=== PATIENT | female | born 1960 | race Caucasian/White ===

== ENCOUNTER 2020-03-07 14:01 | Outpatient (CLI) | payer MEDICARE, SELFPAY ==
--- NOTE | 2020-03-07 14:10 | XR_ITS ---
WS: [id number] SCREENING DEXA SCAN [employer] CLINICAL INFORMATION: POST MENOPAUSAL COMPARISON: None. FINDINGS: The L1-L4 bone mineral density measures 1.202 g/cm2. This corresponds to a T score score of 0.2 and Z score of 0.5. Left femoral neck bone mineral density measures 1.030 g/cm2. This corresponds to a T score of 0.2 and Z score of 0.4. Right femoral neck bone mineral density measures 0.993 g/cm2. This corresponds to a T score -0.1of an d Z score of 0.2. Mean femoral neck bone mineral density measures 1.012 g/cm2. This corresponds to a T score of 0.0 and Z score of 0.3. XR/XR DEXA axial skeleton* [id number] IMPRESSION: Normal bone mineralization. Patient's FRAX calculated 10 year probability for major osteoporotic fracture i s 10.0 % and osteoporotic hip fracture is 0.3%.
== END 2020-03-07 14:02 | disposition home or self-care (01) ==
LOC: RADWPI 14:08
PROVIDERS: Family Provider Internal Medicine; PCP Internal Medicine; Visit Provider Internal Medicine
DX: Z78.0 Asymptomatic menopausal state (principal)
CPT/HCPCS: 77080

== ENCOUNTER 2020-08-01 13:07 | Outpatient (CLI) | payer MEDICARE, SELFPAY ==
--- NOTE | 2020-08-01 13:17 | MM_ITS ---
WS: [id number] BILATERAL DIGITAL SCREENING MAMMOGRAPHY WITH CAD CLINICAL INFORMATION: SCREENING HISTORY: Screening mammogram. No current complaints. COMPARISON: TECHNIQUE: Bilateral CC and MLO views. FINDINGS: The breasts are composed of heterogeneous fibroglandular density tissue, which can limit the detectio n of small underlying mass lesions. 5 mm asymmetric density near the 12:00 or 6:00 position seen on t he cc view posterior depth. Recommend spot compression views and ultrasound if persistent. Right breast is unchanged. MM/[place] [id number] IMPRESSION: BI-RADS: 0-Incomplete: Need additional imaging evaluation FOLLOW UP: Need Additional Imaging
== END 2020-08-01 13:08 | disposition home or self-care (01) ==
LOC: RADSHAW 13:11
PROVIDERS: Family Provider Internal Medicine; PCP Internal Medicine; Visit Provider Nurse Practitioner Family
DX: Z12.31 Encounter for screening mammogram for malignant neoplasm of breast (principal); N64.89 Other specified disorders of breast
CPT/HCPCS: 77067

== ENCOUNTER 2020-08-28 11:47 | Outpatient (CLI) | payer MEDICARE, SELFPAY ==
--- NOTE | 2020-08-28 11:53 | MM_ITS ---
WS: [id number] LEFT DIGITAL MAMMOGRAPHY WITH CAD CLINICAL INFORMATION: ABNORMAL MAMMOGRAM COMPARISON: August 01, 2020 TECHNIQUE: 3 views of the left breast were obtained. FINDINGS: Scattered fibroglandular densities of the left breast. Previous described 5 mm asymmetric density pos terior depth left breast is no longer visualized today on the spot compression views. Findings are be nign. Recommend return to annual screening mammography. MM/[place] [id number] IMPRESSION: BI-RADS: 2-Benign FOLLOW UP: 1 Year Follow-up Recommend return to annual screening mammography.
== END 2020-08-28 11:48 | disposition home or self-care (01) ==
LOC: RADSHAW 11:51
PROVIDERS: Family Provider Internal Medicine; PCP Internal Medicine; Visit Provider Nurse Practitioner Family
DX: R92.8 Other abnormal and inconclusive findings on diagnostic imaging of breast (principal)
CPT/HCPCS: 77065

== ENCOUNTER 2021-05-03 19:48 | Emergency (ER) | payer MEDICARE, SELFPAY ==
--- NOTE | 2021-05-03 19:49 | ECG_ITS ---
[facility] Test Date: 2021-05-03 Pat Name: Kelsea Navarro Department: Room: Gender: Female Home Health Provider: : 1960 Requested By: Silvestre Herrera Order Number: [id number] Molly MD: Jennifer Cates M.D. Measurements Intervals [place] Rate: 105 P: 35 MI: 166 QRS: 6 QRSD: 97 T: 28 QT: 331 QTc: 438 Interpretive Statements SINUS TACHYCARDIA POSSIBLE ANTERIOR MYOCARDIAL INFARCTION , PROBABLY OLD [30 ms Q WAVE IN V3/V4, OR R < 0.2 mV IN V4] Compared to ECG 01/20/2015 09:53:37 Sinus rhythm no longer present Myocardial infarct finding still present Electronically Signed On 05-04-2021 18:34:20 CDT by Jennifer Cates M.D. [id number] f
--- NOTE | 2021-05-03 19:49 | XRR_ITS ---
PROCEDURE INFORMATION: Exam: XR Chest Exam date and time: 05/03/2021 7:49 PM Age: 60 years old Clinical indication: Sternal or substernal pain; Additional info: Cp TECHNIQUE: Imaging protocol: XR of the chest. Views: 1 view. Total images: 1 COMPARISON: [facility] [place] Chest 2 views 02/03/2017 12:10 PM FINDINGS: Lungs: No visible active interstitial or alveolar airspace disease. Pleural spaces: Unremarkable. No pleural effusion. No pneumothorax. Heart/Mediastinum: Unremarkable. No cardiomegaly. Bones/joints: Unremarkable. Other findings: Obesity. XR/XR chest 1V portable [id number] IMPRESSION: Nonacute.
[2021-05-03 19:58] VITALS: BP 137/99; PULSE 106; RESP 16; TEMP 36.9; O2SAT 97; BMI 42.7
--- NOTE | 2021-05-03 20:45 | ED_ITS ---
HPI - Chest Pain General: Chief Complaint: Chest Pain Stated Complaint: Chest Pains Time Seen by Provider: 05/03/21 20:25 History of Present Illness: HPI narrative: Patient is a 60-year-old female with a past medical history of hypertension and rosacea. She is here complaints of chest pain. States started about 4:00 this afternoon while she was sitting at rest it is wax and wane in intensity and and presents. Mostly moderate to mild. States it is just over the left breast and on easily localized area does not radiate down her arm to her shoulder across her chest or to her back or jaw she has not been diaphoretic or nauseous. Has not been short of breath. No history of coronary artery disease no history of diabetes no history of hypertension does not smoke. Denies fevers chills shortness of breath nausea vomiting diarrhea altered mental status or syncope MD complaint: chest pain Review of Systems General: Reports: 10 or more systems reviewed and unremarkable except in HPI and below PFSH ED PFSH: Social History Smoking and tobacco status: never smoked Alcohol intake: current Alcohol intake frequency: holidays/special occasions only Physical Exam Const: COMMON NORMALS: no acute distress, average body habitus and patient oriented x3 GENERAL APPEARANCE: cooperative and comfortable; not in distress, not anxious, not ill appearing, not frail appearing and not diaphoretic HENMT: COMMON NORMALS: normocephalic and atraumatic HEAD & SCALP: normocephalic and atraumatic Chest: COMMONS NORMALS: normal inspection of the chest and normal palpation of entire chest wall CHEST: No localized rib tenderness with anteroposterior compression Resp: COMMON NORMALS: normal respiratory effort, No retractions, No use of accessory muscles and clear to auscultation bilaterally EFFORT & INSPECTION: Yes able to speak in complete sentences and Yes symmetric chest movement AUSCULTATION: clear to auscultation bilaterally Cardio: COMMON NORMALS: regular rate, regular rhythm, S1 normal heart sound present and S2 normal heart sound present; negative for No murmurs present (Cardio) RATE: regular rate RHYTHM: regular rhythm HEART SOUNDS: S1 normal heart sound present and S2 normal heart sound present GI: COMMON NORMALS: Normal to inspection, nondistended, normoactive bowel sounds present, Soft to palpation and non-tender PALPATION: Yes Soft to palpation Extremity: COMMON NORMALS: normal to inspection and full ROM Neuro: COMMON NORMALS: patient oriented x3, moves all extremities and no focal motor deficits Psych: COMMON NORMALS: mental status grossly normal and Normal thought process present THOUGHT PROCESS: Normal thought process present Skin: COMMON NORMALS: no rashes or lesions noted GENERAL SKIN EXAM: no rashes or lesions noted Course ED course: Patient is comfortable well-appearing no cardiac risk factors other than age. Does not appear to be anginal in nature we will get a troponin on her since symptoms have been going on for more than 4 hours should only need to get 1 if it is clear. Will get chest x-ray EKG EKG does not show any ischemic changes. We will continue to monitor and wait for rest of information EKG did not show any acute changes. She had a negative troponin and with symptoms lasting for longer than 4hours there is no need for a second troponin on her. She remains pain-free oxygenating well no acute distress feel she is appropriate for discharge at this time. 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 Does not appear to be anginal at 1st glance given history and physical but will wait for. Patient does not is not tachycardic on my exam is not requiring oxygen is not hypotensive does not have any risk factors for pulmonary embolism not think we need to do a CT angiogram of her. Well score is 1 making her low risk Differential Diagnosis: Cardiac arrest differential diagnosis: Likely acute massive pulmonary embolism, acute respiratory failure and acute myocardial infarction Lab Data: Labs: Lab Results 05/03/21 05/03/21 05/03/21 Range/Units 20:55 20:55 20:55 WBC 7.1 (4.0-10.0) 10^3/ uL RBC 4.76 (4.1-5.3) 10^6/u L Hgb 14.5 (11.5-15.3) g/dL Hct 44.4 (37.0-47.0) % MCV 93.3 (81-99) fl MCH 30.5 (28.0-34.0) pg MCHC 32.7 (30.0-36.0) g/dL RDW 13.1 (12.1-15.1) % Plt Count 249 (130-400) 10^3/c mm MPV 8.8 (7.4-10.4) fL Neut % (Auto) 67.5 % Lymph % (Auto) 24.3 % [place] % (Auto) 6.6 % Eos % (Auto) 0.7 % Baso % (Auto) 0.6 % Neut # (Auto) 4.81 (1.8-7.7) 10^3/u L Lymph # (Auto) 1.7 (0.8-4.8) 10^3/u L [place] # (Auto) 0.5 (0.2-0.9) 10^3/u L Eos # (Auto) 0.1 (0.0-0.8) 10^3/u L Baso # (Auto) 0.0 (0.0-0.1) 10^3/u L Nucleated RBC % (a uto) 0 % Nucleated RBCs # 0.0 /100WBC Sodium 143 (136-145) mmol/L Potassium 3.5 (3.5-5.1) mmol/L Chloride 101 (98-107) mmol/L Carbon Dioxide 28 (22-29) mmol/L Anion Gap 17.5 (5-19) BUN 20 (8-23) mg/dL Creatinine 0.6 (0.5-0.9) mg/dL GFR Calculation 101.6 (90-130) mL/min Glucose 97 (65-115) mg/dL Calculated Osmolal ity 299 H (285-295) mOsm/k g Calcium 9.9 (8.5-10.5) mg/dL Total Bilirubin 0.3 (0.15-1.2) mg/dL AST 37 H (0-32) U/L ALT 48 H (0-33) U/L Alkaline Phosphata se 74 (35-105) IU/L Troponin T Baselin e 6 (0-10) ng/L NT-Pro-B Natriuret Pep 28 (0-125) pg/mL Total Protein 7.1 (6.6-8.7) g/dL Albumin 4.5 (3.5-5.2) g/dL Globulin 2.6 (1.3-4.6) g/dL EKG Data^: EKG 1: EKG interpretation date: 05/03/21 EKG interpretation time: 21:24 Other EKG comments: No evidence evidence of ischemia or infarct mild tachycardia at 105 No evidence of ischemia or infarct normal axis normal intervals Discharge Plan Discharge Prescriptions: No Action omeprazole 20 mg capsule,delayed release(DR/EC) 20 mg PO DAILY RF: 0 cyclobenzaprine 10 mg tablet 10 mg PO TID PRN (Reason: muscle spasm) Qty: 30 RF: 0 Coding Level of Care Code ED Sewing Teacher for Chg Fwd Exam Comprehensive
[2021-05-03] MEDS: aspirin 81 mg Chew Tablet 324 MG PO (21:01)
[2021-05-03 21:14] LABS: Basophils % 0.6 %; Eosinophils # 0.1 10^3/uL (0.0-0.8); Eosinophils % 0.7 %; Hematocrit 44.4 % (37.0-47.0); Hemoglobin 14.5 g/dL (11.5-15.3); Lymphocytes # 1.7 10^3/uL (0.8-4.8); Lymphocytes % 24.3 %; Mean Corpuscular HGB Conc 32.7 g/dL (30.0-36.0); Mean Corpuscular Hemoglobin 30.5 pg (28.0-34.0); Mean Corpuscular Volume 93.3 fl (81-99); Mean Platelet Volume 8.8 fL (7.4-10.4); Monocytes # 0.5 10^3/uL (0.2-0.9); Monocytes % 6.6 %; Neutrophils # 4.81 10^3/uL (1.8-7.7); Neutrophils % 67.5 %; Nucleated Red Blood Cells % 0 %; Platelet Count 249 10^3/cmm (130-400); Red Blood Count 4.76 10^6/uL (4.1-5.3); Red Cell Distribution Width 13.1 % (12.1-15.1); White Blood Count 7.1 10^3/uL (4.0-10.0)
[2021-05-03 21:27] VITALS: BP 156/100; PULSE 93; RESP 16; O2SAT 97
[2021-05-03 21:41] LABS: Troponin(5th) Baseline 6 ng/L (0-10)
[2021-05-03 21:46] LABS: Alanine Aminotransferase 48 U/L (0-33); Albumin Level 4.5 g/dL (3.5-5.2); Alkaline Phosphatase 74 IU/L (35-105); Anion Gap 17.5 (5-19); Aspartate Amino Transferase 37 U/L (0-32); Blood Urea Nitrogen 20 mg/dL (8-23); Calcium 9.9 mg/dL (8.5-10.5); Carbon Dioxide 28 mmol/L (22-29); Chloride 101 mmol/L (98-107); Globulin 2.6 g/dL (1.3-4.6); Glomerular Filtration Rate 101.6 mL/min (90-130); Glucose 97 mg/dL (65-115); NT Pro B Type Natriuretic Pept 28 pg/mL (0-125); Osmolality Calculated 299 mOsm/kg (285-295); Potassium 3.5 mmol/L (3.5-5.1); Sodium 143 mmol/L (136-145); Total Bilirubin 0.3 mg/dL (0.15-1.2); Total Protein 7.1 g/dL (6.6-8.7)
[2021-05-03 22:02] VITALS: BP 156/100; PULSE 91; RESP 20; O2SAT 94
== END 2021-05-03 22:06 | disposition home or self-care (01) ==
PROVIDERS: Emergency Medicine; Emergency Provider Family Medicine; PCP Internal Medicine
DX: R07.9 Chest pain, unspecified (principal)
CPT/HCPCS: 71045; 80053; 83880; 84484; 85025; 93005; 99283

== ENCOUNTER 2021-12-28 12:39 | Outpatient (CLI) | payer MEDICARE, SELFPAY ==
--- NOTE | 2021-12-28 13:17 | MM_ITS ---
WS: [id number] BILATERAL 3D TOMOSYNTHESIS DIGITAL SCREENING MAMMOGRAPHY WITH CAD CLINICAL INFORMATION: SCREENING HISTORY: Screening mammogram. No current complaints. COMPARISON: August 01, 2020 TECHNIQUE: Bilateral CC and MLO views. FINDINGS: Scattered fibroglandular densities bilaterally. A few incidental punctate calcifications. No suspicio us focal mass, asymmetry, calcifications, or architectural distortion. No evidence of malignancy. MM/[place] [id number] IMPRESSION: BI-RADS: 2-Benign FOLLOW UP: 1 Year Follow-up Recommend return to annual screening mammography.
== END 2021-12-28 12:40 | disposition home or self-care (01) ==
LOC: RAD 12:43
PROVIDERS: PCP Internal Medicine; Visit Provider Internal Medicine
DX: Z12.31 Encounter for screening mammogram for malignant neoplasm of breast (principal)
CPT/HCPCS: 77063; 77067

== ENCOUNTER 2022-03-19 06:29 | Outpatient (CLI) | payer MEDICARE, SELFPAY ==
--- NOTE | 2022-03-19 | USCV_ITS ---
FriendKelsea Age: 61 Gender: F : 1960 Exam Date: 03/19/2022 07:12 Ordering Phys: Clement Macario DO Technologist: LIA Exam Location: [facility] [place] Indication: lt leg pain HISTORY: Lt leg pain, baby asa per day PROCEDURES: Venous duplex imaging was performed in only the left lower extremity. FINDINGS: The veins of the left lower extremity are readily compressible with normal venous flow dynamics including spontaneous flow, respiratory phasic variation and augmentation. The right common femoral vein for comparison is normal. CONCLUSIONS No DVT left lower extremity. Dr. Sharonda Mijares DO (Electronically Signed) Final Date: 19 March 2022 08:31 S
== END 2022-03-19 06:30 | disposition home or self-care (01) ==
LOC: RAD 06:30
PROVIDERS: PCP Internal Medicine; Visit Provider Internal Medicine
DX: M79.605 Pain in left leg (principal)
CPT/HCPCS: 93971

== ENCOUNTER → 2022-05-14 16:31 | Outpatient (BNVA) | payer MEDICARE, SELFPAY | PROVIDERS: PCP Internal Medicine; Visit Provider Internal Medicine Pulmonary Disease | DX: I73.00 Raynaud's syndrome without gangrene (principal); M25.641 Stiffness of right hand, not elsewhere classified; M25.642 Stiffness of left hand, not elsewhere classified; R06.02 Shortness of breath; T78.40XA Allergy, unspecified, initial encounter; R09.82 Postnasal drip; G47.33 Obstructive sleep apnea (adult) (pediatric); Z87.891 Personal history of nicotine dependence | CPT/HCPCS: 80053; 82785; 85025; 85651; 86003; 86038; 86140; 86200; 86235; 86431; 99204 ==

== ENCOUNTER 2022-06-25 08:42 | Outpatient (CLI) | payer MEDICARE, SELFPAY | END 2022-06-25 08:43 | disposition home or self-care (01) | PROVIDERS: PCP Internal Medicine; Visit Provider Internal Medicine Pulmonary Disease | DX: R06.02 Shortness of breath (principal) | CPT/HCPCS: 94010; 94726; 94729 ==

== ENCOUNTER 2022-07-29 20:00 | Outpatient (CLI) | payer MEDICARE, SELFPAY | END 2022-07-29 20:01 | disposition home or self-care (01) | LOC: SLEEP 07-30 07:41 | PROVIDERS: PCP Internal Medicine; Visit Provider Internal Medicine Pulmonary Disease | DX: G47.33 Obstructive sleep apnea (adult) (pediatric) (principal) | CPT/HCPCS: 95810 ==

== ENCOUNTER → 2022-08-22 11:54 | Outpatient (BNVA) | payer BC, MEDICAID, SELFPAY | PROVIDERS: PCP Internal Medicine; Visit Provider Internal Medicine Rheumatology | DX: M19.042 Primary osteoarthritis, left hand (principal); M19.041 Primary osteoarthritis, right hand; M19.072 Primary osteoarthritis, left ankle and foot | CPT/HCPCS: 73130; 73630 ==

== ENCOUNTER 2023-03-13 10:35 | Outpatient (CLI) | payer MEDICARE, SELFPAY ==
--- NOTE | 2023-03-13 10:55 | MR_ITS ---
WS: [id number] MRI RIGHT SHOULDER HISTORY: JOINT DERANGEMENT R SHOULDER COMPARISON: Shoulder radiograph 02/06/2020. TECHNIQUE: Multiplanar sequences of the shoulder joint are submitted. Moderate AC joint arthritis. Narrowing of the AC joint with hypertrophic osteophytes and increased so ft tissue. Mild encroachment upon the supraspinatus with deformity. Small amount of fluid in the suba cromial and subdeltoid bursa. Mild subacromial impingement. No os acromion. Normal position of the bi ceps tendon with increased fluid in the tendon sheath. Significant amount of increased fluid in the b iceps tendon sheath. Mild atrophy supraspinatus muscle. Focal insertion site tear of the supraspinatus tendon. There is no retraction of the tendon. There is significant additional tendinopathy in the supraspinatus tendon. Supraspinatus tendinopathy is distal to the AC joint hypertrophic encroachment. Moderate amount of fl uid in the subscapularis recess. No tendon tear involving the subscapularis or infraspinatus. Focal edema in the humeral head close to the glenoid. Loss of the normal cortical surface and cartila ge surrounding the glenoid. Intrasubstance degeneration throughout the labrum. Mild narrowing of the glenohumeral joint. MR/MR shoulder RT wo con* [id number] IMPRESSION: 1. Insertion site tear supraspinatus tendon without retraction. Moderate tendi nopathy in the distal 3 cm of the supraspinatus tendon. 2. Focal marrow edema in the medial humeral head may be from recent trauma. No fracture. 3. Mild glenohumeral joint arthritis. 4. Moderate AC joint arthritis with encroachment upon the supraspinatus tendon . 5. Biceps tenosynovitis. 6. Mild atrophy supraspinatus muscle.
== END 2023-03-13 10:36 | disposition home or self-care (01) ==
PROVIDERS: PCP Internal Medicine; Visit Provider Internal Medicine
DX: M24.811 Other specific joint derangements of right shoulder, not elsewhere classified (principal)
CPT/HCPCS: 73221

== ENCOUNTER → 2023-03-26 10:29 | Outpatient (BNVA) | payer MEDICARE, SELFPAY | PROVIDERS: PCP Internal Medicine; Referring Provider Internal Medicine; Visit Provider Specialist | DX: M67.911 Unspecified disorder of synovium and tendon, right shoulder; M75.111 Incomplete rotator cuff tear or rupture of right shoulder, not specified as traumatic; M19.011 Primary osteoarthritis, right shoulder; M19.012 Primary osteoarthritis, left shoulder | CPT/HCPCS: 20610; 73030; 99204; J1100; J2795; J3301 ==

== ENCOUNTER 2023-04-08 07:50 | Outpatient (RCR) | payer MEDICARE, SELFPAY | END 2023-04-17 23:59 | disposition home or self-care (01) | LOC: SPT 07:50 | PROVIDERS: PCP Internal Medicine; Visit Provider Specialist | DX: M25.512 Pain in left shoulder (principal); M25.511 Pain in right shoulder | CPT/HCPCS: 97161 ==

== ENCOUNTER 2023-04-18 06:00 | Outpatient (RCR) | payer MEDICARE, SELFPAY | END 2023-05-07 23:59 | disposition home or self-care (01) | LOC: SPT 06:00 | PROVIDERS: PCP Internal Medicine; Visit Provider Specialist | DX: M25.511 Pain in right shoulder (principal); M25.512 Pain in left shoulder | CPT/HCPCS: 97032; 97110; G0283 ==

== ENCOUNTER 2023-06-16 08:35 | Outpatient (CLI) | payer MEDICARE, SELFPAY ==
--- NOTE | 2023-06-16 08:56 | MM_ITS ---
WS: [id number] BILATERAL SCREENING DIGITAL TOMOSYNTHESIS MAMMOGRAM WITH CAD HISTORY: SCREENING COMPARISON: 12/28/2021, 08/01/2020 Bilateral CC and MLO views with tomosynthesis and synthetic mammography submitted. Computer aided det ection analyzed. Breast composition: There are scattered areas of fibroglandular density. No suspicious masses, microc alcifications or architectural distortion. IMPRESSION: MM/[place] [id number] BI-RADS: 1-Negative FOLLOW UP: 1 Year Follow-up
== END 2023-06-16 08:36 | disposition home or self-care (01) ==
PROVIDERS: PCP Internal Medicine; Visit Provider Physician Assistant
DX: Z12.31 Encounter for screening mammogram for malignant neoplasm of breast (principal)
CPT/HCPCS: 77063; 77067

== ENCOUNTER 2023-11-11 00:43 | Emergency (ER) | payer MEDICARE, SELFPAY ==
[2023-11-11] VITALS (8 sets, daily range): BP systolic 118–191; BP diastolic 78–110; PULSE 78–91; RESP 16–18; TEMP 37.2; O2SAT 78–97; BMI 42.1
--- NOTE | 2023-11-11 01:08 | CTR_ITS ---
PROCEDURE INFORMATION: Exam: CT Abdomen And Pelvis With Contrast Exam date and time: 11/11/2023 1:47 AM Age: 63 years old Clinical indication: Nausea and vomiting; Abdominal pain; Localized; Right upper quadrant (ruq); Prior surgery; Surgery date: 6+ months; Surgery type: Exploratory laparotomy; Patient HX: C/O ruq pain with n/v; Additional info: Ruq abd pain TECHNIQUE: Imaging protocol: Computed tomography of the abdomen and pelvis with contrast. Radiation optimization: All CT scans at this facility use at least one of these dose optimization techniques: automated exposure control; mA and/or kV adjustment per patient size (includes targeted exams where dose is matched to clinical indication); or iterative reconstruction. Contrast material: OMNI 350; Contrast volume: 100 ml; Contrast route: INTRAVENOUS (IV); COMPARISON: CT kidney stone [id number] 02/01/2019 3:15 PM RADIATION DOSE METRICS: Total DLP (mGy-cm): 1019.06 FINDINGS: Lungs: Lingular scarring/atelectasis. Bibasilar scarring versus atelectasis, pfeyx-kwkclox-hatd-left. Heart: Base of heart is unremarkable as visualized. Diaphragm: Small sliding-type hiatal hernia. Liver: Right hepatic dome hemangioma. Gallbladder and bile ducts: Gallbladder is distended, no significant inflammatory change. Pancreas: Mild fatty atrophy of the pancreas. Spleen: Normal. No splenomegaly. Adrenal glands: Normal. No mass. Kidneys and ureters: Left kidney demonstrates multiple cortical hypodensities too small to characterize by modality, statistically likely to represent benign renal cysts. Multiple small fluid attenuating cysts within the bilateral renal pelves. Stomach and bowel: Unremarkable. No obstruction. No mucosal thickening. Appendix: No evidence of appendicitis. Intraperitoneal space: Unremarkable. No free air. No significant fluid collection. Vasculature: Stable appearing bilateral pelvic phleboliths. Lymph nodes: Unremarkable. No enlarged lymph nodes. Urinary bladder: Unremarkable as visualized. Reproductive: Unremarkable as visualized. Bones/joints: Severe degenerative change of the visualized osseous structures. Grade 1 anterolisthesis of L3 on L4. Grade 1 anterolisthesis of L4 on L5. Stable sclerosis of the right iliac wing at the sacroiliac junction. Soft tissues: Unremarkable. CT/CT abdomen pelvis w con* [id number] IMPRESSION: 1. No acute intra-abdominal findings. 2. Distended gallbladder without significant inflammatory change. If there is continued right upper quadrant pain, recommend ultrasound for further assessment. 3. Additional findings as above. COMMENTS: Consistent with the [employer]'s Incidental Findings Committee white paper (J Am Pablito Radiol 2018): Any incidental renal lesion less than 1 cm or classified as too small to characterize, or any incidental cystic renal lesion characterized as simple-appearing, is likely benign. No follow-up imaging is recommended for these lesions per consensus recommendations based on imaging criteria.
[2023-11-11 01:14] LABS: Basophils % 0.5 %; Eosinophils # 0.1 10^3/uL (0.0-0.8); Eosinophils % 1.2 %; Hematocrit 45.6 % (36-47); Lymphocytes # 1.5 10^3/uL (0.8-4.8); Lymphocytes % 25.6 %; Mean Corpuscular HGB Conc 33.6 g/dL (30-55); Mean Corpuscular Hemoglobin 31.3 pg (27-33); Mean Corpuscular Volume 93.3 fl (85-98); Mean Platelet Volume 8.7 fL (7.4-10.4); Monocytes # 0.4 10^3/uL (0.2-0.9); Monocytes % 7.5 %; Neutrophils # 3.71 10^3/uL (1.8-7.7); Nucleated Red Blood Cells % 0 %; Platelet Count 201 10^3/cmm (157-399); Red Blood Count 4.89 10^6/uL (3.85-5.65); Red Cell Distribution Width 12.5 % (12.1-15.1); White Blood Count 5.71 10^3/uL (3.29-11.43)
[2023-11-11] MEDS: ketorolac 30 mg/mL INJ IVP (01:16)
[2023-11-11 01:26] LABS: INR 0.85 (0.8-1.2)
[2023-11-11 01:38] LABS: Alanine Aminotransferase 42 U/L (0-33); Albumin Level 4.3 g/dL (3.5-5.2); Alkaline Phosphatase 79 U/L (35-105); Anion Gap 18.1 (5-19); Aspartate Amino Transferase 38 U/L (0-32); Blood Urea Nitrogen 12 mg/dL (8-23); Calcium 9.5 mg/dL (8.5-10.5); Carbon Dioxide 25 mmol/L (22-29); Chloride 101 mmol/L (98-107); Creatinine Clr Calc Pharmacy 88.6204; Glomerular Filtration Rate 84.2 mL/min (90-130); Glucose 117 mg/dL (65-115); Lipase 54 U/L (13-60); Osmolality Calculated 291 mOsm/kg (285-295); Potassium 4.1 mmol/L (3.5-5.1); Sodium 140 mmol/L (136-145); Total Bilirubin 0.2 mg/dL (0.15-1.2); Total Protein 7.3 g/dL (6.6-8.7)
[2023-11-11 01:41] LABS: Lactic Sepsis W/Reflex 2.2 mmol/L (0.5-2.2)
[2023-11-11 01:45] LABS: Procalcitonin 0.06 ng/mL (0-0.5)
[2023-11-11] MEDS: iohexol 350 mg/mL 500 mL Btl (per mL) IV (01:48)
[2023-11-11 02:16] LABS: Add Urine Culture? No; Add Urine Microscopic? YES; Bilirubin Urine Neg (Negative); Blood Urine Trace (Negative); Glucose Urine UA Norm (Normal); Ketones Urine Negative (Negative); Leukocyte Esterase Urine Negative (Negative); Nitrate Urine Negative (Negative); Protein Urine Neg (Negative); RBC Urine 0-4 /hpf (0-2); Specific Gravity, Urine 1.015 (1.005-1.030); Squamous Epithelial Cell Urine 0-4 /hpf (0-5); Urine Appearance Clear (CLEAR); Urine Color Yellow (Yellow); Urobilinogen Urine Neg (Negative); pH Urine 5 (5-7)
--- NOTE | 2023-11-11 03:04 | USR_ITS ---
PROCEDURE INFORMATION: Exam: US Abdomen, Limited; Right Upper Quadrant Exam date and time: 11/11/2023 3:43 AM Age: 63 years old Clinical indication: Abdominal pain; Epigastric; Additional info: Ruq abd floyd TECHNIQUE: Imaging protocol: Real time ultrasound of the abdomen with image documentation. Limited exam focused on the right upper quadrant. COMPARISON: CT abdomen pelvis w con* [id number] 11/11/2023 1:47 AM FINDINGS: Liver: Liver demonstrates findings compatible with mild steatosis. Known hemangioma is not visualized on this examination. Gallbladder: Normal. No gallstones. There is no gallbladder wall thickening. Biliary ducts: Normal. No stones. No dilation. Pancreas: Visualized pancreas is unremarkable. Right kidney: Normal. No mass. No hydronephrosis. US/US gall bladder [id number] IMPRESSION: 1. Mild steatosis. 2. Normal gallbladder. No evidence biliary obstruction.
[2023-11-11 03:11] LABS: Reflex Lactate Order REFLEX LACTIC ORDERD
[2023-11-11] MEDS: morphine 4 mg/mL SDV 1 mL IVP (03:14)
--- NOTE | 2023-11-11 04:17 | ED_ITS ---
HPI - Abdominal Pain 2 General: Chief Complaint: Abdominal Pain Stated Complaint: sever abd pain right n/v Time Seen by Provider: 11/11/23 01:07 History of Present Illness: 63-year-old female presents emergency de partment with complaints of right upper quadrant abdominal pain radiating around to her right flank and back area. She states this started suddenly at approximately 9 PM last night. She states that the pain initially was a 10 out of 10. She does endorse a single episode of nausea and vomiting. She denies hematic emesis or hematochezia. She states she has not had any abdominal surgeries. She states that the pain does ease up a little bit if she sits up. She denies fevers chills or night sweats. Associated Symptoms: Reports nausea and vomiting; Denies fever(s) Review of Systems 2 General: Reports: 10 or more systems reviewed and unremarkable except in HPI and below Const: Denies: fever(s), fatigue or malaise GI: Reports: abdominal pain, nausea and vomiting PFS ED 2 PFSH: Medical History Woody esophagus GERD (gastroesophageal reflux disease) High risk medication use Hypercholesteremia Hypertension Inflammatory arthritis Obstructive sleep apnea Osteoarthritis Rosacea Surgical History History of knee replacement procedure of right knee History of knee surgery scope bilaterally Family History Other CAD (coronary artery disease) Cancer Diabetes Family history of premature coronary artery disease Hyperlipidemia Hypertension Lupus Rheumatoid arthritis Stroke Denies family history of Psoriatic arthritis Chronic kidney disease (CKD) Lung disease Social History Smoking and tobacco/nicotine status: former use of tobacco/nicotine Quit status (tobacco/nicotine): has quit using Year quit tobacco: 1981 Former quit date comment: 2pps x 6 years Alcohol intake: current Alcohol intake frequency: holidays/special occasions only Substance/Drug Use: never Physical Exam 2 Narrative: EXAM NARRATIVE: Constitutional: the patient appears well nourished and with normal development. Vital signs reviewed as documented. Obvious distress noted. HENMT: Normocephalic, atraumatic. External ears normal appearance without drainage. Nose without drainage, normal appearance. Mucus membranes moist. Neck is supple, No jugular venous distension, trachea is midline, no appreciable carotid bruits. No lymphadenopathy. No meningeal signs. Flexion, extension and lateral rotation is without pain. Eyes: Pupils are equal, round, reactive to light and accommodation. No scleral icterus. Extra-ocular movement are intact. Thorax is symmetrical and with equal rise and fall with respirations. Resp: Lungs are clear to auscultation. No wheezes, rales, crackles or ronchi at present. Cardio: Regular rate and rhythm. Positive S1, S2. No appreciable murmurs, rubs or gallops. GI: Abdominal exam reveals normal bowel sounds to all quadrants. No organomegaly. No obvious palpable masses noted. No hepatomegally appreciated. Soft, tender to palpation to the right upper quadrant positive Membreno sign. Extremity: Extremities are non-edematous and both femoral and pedal pulses are 2+ and equal bilaterally. Moves all extremities well, sensation in all extremities. Neuro: Alert and oriented x4, person, place, time and situation. Cranial nerves II through XII are grossly intact Motor strength in the upper and lower extremities are equal and bilateral 5/5. Psych: Cooperative, calm, normal thought process, appropriate judgment. Skin: No lesions, rashes. No gross abnormalities noted. Back: Symmetrical, no obvious deformity, No CVA tenderness Course 2 Reevaluation(s): Reevaluation #1: Reevaluation the patient after she received both Toradol and morphine demonstrates significant improvement in control the patient's pain. We are currently awaiting the ultrasound report. Time: 04:21 Vital Signs: Vital signs: Vital Signs Temperature 98.9 F 11/11/23 00:47 Pulse Rate 85 11/11/23 04:42 Respiratory Rate 16 11/11/23 03:14 Blood Pressure 139/81 11/11/23 04:42 Pulse Oximetry 92 11/11/23 04:42 Oxygen Delivery Me thod Room Air 11/11/23 03:55 MDM - Abdominal Pain Medical Decision Making Physical exam completed and documented I will obtain a CBC and CMP as well as a lipase and urinalysis. I will obtain a CT of the abdomen pelvis and provide the patient nausea and pain medication. Patient does have slightly elevated AST and ALT that is 38 and 42 respectively. Her urinalysis did demonstrate trace blood. Her total bilirubin was 0.2. Differential diagnosis includes renal calculi, renal colic, UTI, pyelonephritis, cholecystitis, cholelithiasis, pancreatitis, gastroenteritis, pleuritic chest pain. The CT scan of the abdomen pelvis did demonstrate distended gallbladder and recommended ultrasound for further assessment. Ultrasound of the gallbladder demonstrated mild steatosis with an otherwise normal gallbladder and no evidence of biliary obstruction. Medical Records I reviewed the patient's medical records. Lab Data I reviewed the patient's lab results. 11/11/23 01:08 11/11/23 01:08 Labs/Radiology: Radiology Impressions Abdomen/Pelvis CT 11/11/23 01:08 IMPRESSION: 1. No acute intra-abdominal findings. 2. Distended gallbladder without significant inflammatory change. If there is continued right upper quadrant pain, recommend ultrasound for further assessment. 3. Additional findings as above. COMMENTS: Consistent with the [employer]'s Incidental Findings Committee white paper (J Am P[employer]iol 2018): Any incidental renal lesion less than 1 cm or classified as too small to characterize, or any incidental cystic renal lesion characterized as simple-appearing, is likely benign. No follow-up imaging is recommended for these lesions per consensus recommendations based on imaging criteria. Gallbladder Ultrasound 11/11/23 03:04 IMPRESSION: 1. Mild steatosis. 2. Normal gallbladder. No evidence biliary obstruction. Laboratory Results WBC 5.71 10^3/uL (3.29-11.43) 11/11/23 01:08 RBC 4.89 10^6/uL (3.85-5.65) 11/11/23 01:08 Hgb 15.30 g/dL (11.27-16.99) 11/11/23 01:08 Hct 45.6 % (36-47) 11/11/23 01:08 MCV 93.3 fl (85-98) 11/11/23 01:08 MCH 31.3 pg (27-33) 11/11/23 01:08 MCHC 33.6 g/dL (30-55) 11/11/23 01:08 RDW 12.5 % (12.1-15.1) 11/11/23 01:08 Plt Count 201 10^3/cmm (157-399) 11/11/23 01:08 MPV 8.7 fL (7.4-10.4) 11/11/23 01:08 Neut % (Auto) 65.0 % 11/11/23 01:08 Lymph % (Auto) 25.6 % 11/11/23 01:08 [place] % (Auto) 7.5 % 11/11/23 01:08 Eos % (Auto) 1.2 % 11/11/23 01:08 Baso % (Auto) 0.5 % 11/11/23 01:08 Neut # (Auto) 3.71 10^3/uL (1.8-7.7) 11/11/23 01:08 Lymph # (Auto) 1.5 10^3/uL (0.8-4.8) 11/11/23 01:08 [place] # (Auto) 0.4 10^3/uL (0.2-0.9) 11/11/23 01:08 Eos # (Auto) 0.1 10^3/uL (0.0-0.8) 11/11/23 01:08 Baso # (Auto) 0.0 10^3/uL (0.0-0.1) 11/11/23 01:08 Nucleated RBC % (auto) 0 % 11/11/23 01:08 Nucleated RBCs # 0.0 /100WBC 11/11/23 01:08 PT 11.90 SECONDS (12.1-14.9) L 11/11/23 01:08 INR 0.85 (0.8-1.2) 11/11/23 01:08 Sodium 140 mmol/L (136-145) 11/11/23 01:08 Potassium 4.1 mmol/L (3.5-5.1) 11/11/23 01:08 Chloride 101 mmol/L (98-107) 11/11/23 01:08 Carbon Dioxide 25 mmol/L (22-29) 11/11/23 01:08 Anion Gap 18.1 (5-19) 11/11/23 01:08 BUN 12 mg/dL (8-23) 11/11/23 01:08 Creatinine 0.7 mg/dL (0.5-0.9) 11/11/23 01:08 GFR Calculation 84.2 mL/min (90-130) L 11/11/23 01:08 Glucose 117 mg/dL (65-115) H 11/11/23 01:08 Calculated Osmolality 291 mOsm/kg (285-295) 11/11/23 01:08 Lactic Acid 2.2 mmol/L (0.5-2.2) 11/11/23 01:21 Lactic Acid (Sepsis) 2.0 mmol/L (0.5-2.2) 11/11/23 04:08 Calcium 9.5 mg/dL (8.5-10.5) 11/11/23 01:08 Total Bilirubin 0.2 mg/dL (0.15-1.2) 11/11/23 01:08 AST 38 U/L (0-32) H 11/11/23 01:08 ALT 42 U/L (0-33) H 11/11/23 01:08 Alkaline Phosphatase 79 U/L (35-105) 11/11/23 01:08 Total Protein 7.3 g/dL (6.6-8.7) 11/11/23 01:08 Albumin 4.3 g/dL (3.5-5.2) 11/11/23 01:08 Globulin 3.0 g/dL (1.3-4.6) 11/11/23 01:08 Lipase 54 U/L (13-60) 11/11/23 01:08 Procalcitonin 0.06 ng/mL (0-0.5) 11/11/23 01:08 Urine Color Yellow (Yellow) 11/11/23 02:00 Urine Appearance Clear (CLEAR) 11/11/23 02:00 Urine pH 5 (5-7) 11/11/23 02:00 Ur Specific [place] 1.015 (1.005-1.030) 11/11/23 02:00 Urine Protein Neg (Negative) 11/11/23 02:00 Urine Glucose (UA) Norm (Normal) 11/11/23 02:00 Urine Ketones Negative (Negative) 11/11/23 02:00 Urine Blood Trace (Negative) H 11/11/23 02:00 Urine Nitrate Negative (Negative) 11/11/23 02:00 Urine Bilirubin Neg (Negative) 11/11/23 02:00 Urine Urobilinogen Neg mg/dL (Negative) 11/11/23 02:00 Ur Leukocyte Esterase Negative (Negative) 11/11/23 02:00 Urine RBC 0-4 /hpf (0-2) H 11/11/23 02:00 Urine WBC None /hpf (0-5) 11/11/23 02:00 Ur Squamous Epith Cells 0-4 /hpf (0-5) H 11/11/23 02:00 Amorphous Sediment Not Reportable 11/11/23 02:00 Urine Bacteria None /hpf (NONE) 11/11/23 02:00 All radiology interpretation(s) finalized by discharge Discharge Plan Discharge Patient Disposition: Home Clinical Impression: Abdominal pain Qualifiers: Abdominal location: right upper quadrant Qualified Code(s): R10.11 - Right upper quadrant pain Nausea & vomiting Qualifiers: Vomiting type: unspecified Qualified Code(s): R11.2 - Nausea with vomiting, unspecified Condition: Stable Prescriptions: New ondansetron HCl 4 mg tablet 4 mg PO Q6H PRN (Reason: nausea and vomiting) Qty: 14 0RF No Action omeprazole 20 mg capsule,delayed release(DR/EC) 20 mg PO DAILY hydrochlorothiazide 25 mg tablet 25 mg PO DAILY albuterol sulfate 90 mcg/actuation HFA aerosol inhaler 2 puff inhalation Q6H PRN (Reason: shortness of breath or wheezing) Qty: 8.5 5RF fluticasone propionate [Flonase Allergy Relief] 50 mcg/actuation spray,suspension 2 spray intranasal DAILY Qty: 16 3RF Rx Instructions: administer into each nostril prednisone 20 mg tablet See Rx Instructions PO .COMPLEX PRN (Reason: joint pain flare) Qty: 30 1RF Rx Instructions: take 1 or 2 tab daily for 5-7 days as needed for arthritis flare PO PRN; hydroxychloroquine 200 mg tablet 200 mg PO BID Qty: 60 3RF fluticasone propion-salmeterol [Advair Diskus] 100-50 mcg/dose blister with device 1 inh inhalation BID Qty: 60 0RF Discharge Orders: Discharge ED (Routine); Ordered 11/11/23 Ordered By: Gerald Potts Referrals: Clement Macario DO [Primary Care Provider] - Discharge Diet: Usual diet Discharge Activity: Resume usual activity Patient Instructions: Abdominal Pain (ED), Opioid Safety, Pain Management Activity Restrictions/Additional Instructions: Activity Restrictions/Additional Instructions: Thank you for choosing [facility] for your healthcare needs today. Please realize that you were seen in the Emergency Department and that we are providing you with an emergency medical screening exam and this may not be a complete and all inclusive of all the testing and or medical work-up that you may need to determine your ailment or severity of your illness. It is very important that you follow-up as instructed with your Primary care provider or Specialist for additional evaluation and to discuss your medical treatment plan. Coding Level of Care Code ED [employer] Worker for Dominique Cook
== END 2023-11-11 04:44 | disposition home or self-care (01) ==
PROVIDERS: Emergency Provider Internal Medicine; PCP Internal Medicine
DX: R10.11 Right upper quadrant pain (principal); R11.2 Nausea with vomiting, unspecified; Z87.891 Personal history of nicotine dependence; I10 Essential (primary) hypertension
CPT/HCPCS: 74177; 76705; 80053; 81001; 83605; 83690; 84145; 85025; 85610; 96374; 96375; 99285; J1885; J2270; Q9967

== ENCOUNTER → 2024-02-18 09:42 | Outpatient (BNVA) | payer MEDICARE, MEDICAID, SELFPAY | PROVIDERS: PCP Internal Medicine; Visit Provider Nurse Practitioner Family | DX: D48.5 Neoplasm of uncertain behavior of skin (principal); L71.8 Other rosacea; L57.0 Actinic keratosis; D22.21 Melanocytic nevi of right ear and external auricular canal; D22.5 Melanocytic nevi of trunk | CPT/HCPCS: 11102; 17000; 99204 ==

== ENCOUNTER → 2024-03-24 08:16 | Outpatient (BNVA) | payer MEDICARE, MEDICAID, SELFPAY | PROVIDERS: PCP Internal Medicine; Visit Provider Dermatology | DX: D22.5 Melanocytic nevi of trunk (principal); L24.9 Irritant contact dermatitis, unspecified cause; D48.5 Neoplasm of uncertain behavior of skin | CPT/HCPCS: 11402; 13101; 99213 ==

== ENCOUNTER 2024-06-18 08:35 | Outpatient (CLI) | payer MEDICARE, MEDICAID, SELFPAY ==
--- NOTE | 2024-06-18 08:41 | MM_ITS ---
WS: [id number] BILATERAL SCREENING DIGITAL TOMOSYNTHESIS MAMMOGRAM WITH CAD HISTORY: SCREENING COMPARISON: 06/16/2023, 12/28/2021 Bilateral CC and MLO views with tomosynthesis and synthetic mammography submitted. Computer aided det ection analyzed. Breast composition: There are scattered areas of fibroglandular density. No suspicious masses, microc alcifications or architectural distortion. MM/MM scr BI tomosynthesis [id number] IMPRESSION: BI-RADS: 1 - Negative. FOLLOW UP: 1 Year Follow-up
== END 2024-06-18 08:36 | disposition home or self-care (01) ==
LOC: RAD 08:37
PROVIDERS: PCP Internal Medicine; Visit Provider Internal Medicine
DX: Z12.31 Encounter for screening mammogram for malignant neoplasm of breast (principal); R92.323 Mammographic fibroglandular density, bilateral breasts
CPT/HCPCS: 77063; 77067

== ENCOUNTER → 2024-09-02 08:06 | Outpatient (BNVA) | payer MEDICARE, MEDICAID, SELFPAY | PROVIDERS: PCP Internal Medicine; Visit Provider Nurse Practitioner Family | DX: L29.89 Other pruritus (principal); L71.8 Other rosacea; L24.9 Irritant contact dermatitis, unspecified cause; L65.9 Nonscarring hair loss, unspecified; D22.21 Melanocytic nevi of right ear and external auricular canal; D22.5 Melanocytic nevi of trunk; L81.4 Other melanin hyperpigmentation; Z87.2 Personal history of diseases of the skin and subcutaneous tissue | CPT/HCPCS: 99214 ==

== ENCOUNTER → 2024-10-11 09:09 | Outpatient (BNVA) | payer MEDICARE, MEDICAID, SELFPAY | PROVIDERS: PCP Family Medicine; Visit Provider Specialist | DX: M19.012 Primary osteoarthritis, left shoulder (principal) | CPT/HCPCS: 20610; 73030; 99214; J1100; J2795; J3301 ==

== ENCOUNTER 2024-10-21 08:24 | Outpatient (RCR) | payer MEDICARE, MEDICAID, SELFPAY | END 2024-11-15 23:59 | disposition home or self-care (01) | LOC: SPT 08:24 | PROVIDERS: Visit Provider Specialist | DX: M19.012 Primary osteoarthritis, left shoulder (principal) | CPT/HCPCS: 97110; 97150; 97161 ==

== ENCOUNTER → 2025-02-14 11:28 | Outpatient (BNVA) | payer MEDICARE, MEDICAID, SELFPAY | PROVIDERS: PCP Family Medicine; Visit Provider Nurse Practitioner | DX: M25.561 Pain in right knee (principal); Z96.651 Presence of right artificial knee joint; M62.81 Muscle weakness (generalized) | CPT/HCPCS: 73560; 73565; 99204 ==

== ENCOUNTER → 2025-03-03 07:58 | Outpatient (BNVA) | payer MEDICARE, MEDICAID, SELFPAY | PROVIDERS: Visit Provider Nurse Practitioner Family | DX: L71.8 Other rosacea (principal); L29.89 Other pruritus; D22.21 Melanocytic nevi of right ear and external auricular canal; D22.5 Melanocytic nevi of trunk; L81.4 Other melanin hyperpigmentation; I78.8 Other diseases of capillaries; Z87.2 Personal history of diseases of the skin and subcutaneous tissue; L57.0 Actinic keratosis | CPT/HCPCS: 17000; 99214 ==

== ENCOUNTER 2025-03-09 08:16 | Outpatient (RCR) | payer MEDICARE, MEDICAID, SELFPAY | END 2025-03-17 23:59 | disposition home or self-care (01) | LOC: SPT 08:16 | PROVIDERS: Visit Provider Nurse Practitioner | DX: Z47.1 Aftercare following joint replacement surgery (principal); Z96.651 Presence of right artificial knee joint | CPT/HCPCS: 97110; 97161 ==

== ENCOUNTER 2025-03-18 05:00 | Outpatient (RCR) | payer MEDICARE, MEDICAID, SELFPAY | END 2025-04-17 23:59 | disposition home or self-care (01) | LOC: SPT 05:00 | PROVIDERS: Visit Provider Nurse Practitioner | DX: Z47.1 Aftercare following joint replacement surgery (principal); Z96.651 Presence of right artificial knee joint | CPT/HCPCS: 97110; 97164 ==

== ENCOUNTER → 2025-04-11 10:24 | Outpatient (BNVA) | payer MEDICARE, MEDICAID, SELFPAY | PROVIDERS: Visit Provider Nurse Practitioner | DX: M25.561 Pain in right knee (principal); Z96.651 Presence of right artificial knee joint | CPT/HCPCS: 99213 ==

== ENCOUNTER → 2025-04-15 10:13 | Outpatient (BNVA) | payer MEDICARE, MEDICAID, SELFPAY | PROVIDERS: Visit Provider Nurse Practitioner | DX: M19.012 Primary osteoarthritis, left shoulder (principal); M19.011 Primary osteoarthritis, right shoulder; Z71.89 Other specified counseling | CPT/HCPCS: 20610; 73030; 99214; J1100; J2795; J3301; J9999 ==

== ENCOUNTER 2025-04-18 05:00 | Outpatient (RCR) | payer MEDICARE, MEDICAID, SELFPAY | END 2025-05-13 13:17 | disposition home or self-care (01) | LOC: SPT 05:00 | PROVIDERS: Visit Provider Nurse Practitioner | DX: Z47.1 Aftercare following joint replacement surgery (principal); Z96.651 Presence of right artificial knee joint | CPT/HCPCS: 97110; 97164 ==

== ENCOUNTER → 2025-06-27 14:39 | Outpatient (BNVA) | payer MEDICARE, MEDICAID, SELFPAY | PROVIDERS: PCP Family Medicine; Visit Provider Nurse Practitioner | DX: M19.011 Primary osteoarthritis, right shoulder (principal); M19.012 Primary osteoarthritis, left shoulder; Z98.890 Other specified postprocedural states; R29.898 Other symptoms and signs involving the musculoskeletal system; Z71.89 Other specified counseling | CPT/HCPCS: 20610; 99214; J1100; J2795; J3301; J9999 ==

== ENCOUNTER 2025-08-02 07:42 | Outpatient (CLI) | payer MEDICARE, MEDICAID, SELFPAY ==
--- NOTE | 2025-08-02 07:57 | MR_ITS ---
WS: [id number] MRI LEFT SHOULDER ARTHROGRAM HISTORY: left shoulder pain. hx RCR COMPARISON: Radiograph 04/15/2025 TECHNIQUE: Pre and postcontrast imaging. Gadolinium mixture was injected under fluoroscopy. Coronal T1 fat sat, sagittal T2 fat sat, coronal T2 fat sat, axial proton density, axial T1 nonfat saturation views are submitted. Prearthrogram: Marked AC joint arthritis. AC joint is narrowed with small osteophytes from the distal clavicle and the adjacent acromion. Small amount of fluid in the subacromial and subdeltoid bursa. No os acromion. Lobulated cyst measuring 11 x 13 mm extending along the superior clavicular border may be associated with the AC joint arthritis. Biceps tendon is absent from the bicipital groove. There is a large amount of fluid in the biceps tendon sheath. Severe glenohumeral joint arthritis. Osteophytic ridging around the glenoid and the humeral head. Humeral head osteophytes contacts the glenoid. Loss of the normal cartilage. Large cystic mass is lobulated in the subscapularis recess. Mild atrophy of the supraspinatus and subscapularis muscles. Surface fraying along the distal supraspinatus tendon. Small insertion site tear. Mild tendinopathy of the substance supraspinatus tendon. Thickening and enlargement of the distal subscapularis tendon. Tendinopathy but no definite tear is identified. Infraspinatus tendon and teres minor tendon appear intact. Diffuse abnormality throughout the labrum. Postcontrast imaging: Large lobulated subscapularis recess bursa communicates with the joint and distended with the injected contrast. This bursa encases the subscapularis tendon. Abnormal signal throughout the rotator cuff interval. Biceps tendon is absent from the bicipital groove. Injected contrast does not communicate with the AC joint. No full-thickness tear of the supraspinatus. There is significant fraying along the articular surface of the tendon. Diffusely abnormal labral. MR/MR shoulder LT wo/w con [id number] IMPRESSION: 1. Severe glenohumeral joint arthropathy. Loss of the normal joint space with a large osteophytes around the humeral head and glenoid. Complete loss of carti mann. 2. Marked AC joint arthritis. 3. Diffusely abnormal labrum. 4. Absent biceps tendon from the bicipital groove. Large amount of fluid withi n the biceps tendon sheath. 5. Large subscapularis recess bursa. Bursae does communicate with the joint as it fills with the injected contrast. 6. Tendinopathy in the distal supraspinatus and subscapularis tendons. No full -thickness tears are identified. 7. Mild atrophy of the supraspinatus and subscapularis muscles.
--- NOTE | 2025-08-02 08:00 | IR_ITS ---
WS: [id number] LEFT SHOULDER ARTHROGRAM UNDER FLUOROSCOPY. PRIOR TO MRI EVALUATION. HISTORY: prior rotator cuff repair. COMPARISON: Radiograph 04/15/2025 FLUOROSCOPY TIME: 1min [id number] # of spot films: 3 Procedure, risks and complications were explained to the patient. Consent has been obtained. Under fluoroscopic guidance the skin is marked over the medial superior third of the humeral head, cleansed with ChloraPrep and anesthetized with lidocaine. 22- gauge spinal needle is inserted to the cortex of the humeral head. Test injection with Omnipaque reveals the needle is appropriately positioned in the joint. A mixture of 10 cc sterile saline, 5 cc Omnipaque and 0.1 mmol gadolinium are injected under fluoroscopic guidance. Patient tolerated the joint distention well. No complications. Severe glenohumeral joint space narrowing. IR/IR arthrogram shoulderLT [id number] IMPRESSION: Uncomplicated LEFT shoulder joint injection prior to MRI.
[2025-08-02] MEDS: gadobenate dimeglumine 20 mL vial 3 ML IV (09:18)
[2025-08-02] MEDS: iohexol 240 mg/mL 50 mL Btl 20 ML INTRA-ARTI (09:20)
== END 2025-08-02 07:43 | disposition home or self-care (01) ==
PROVIDERS: PCP Family Medicine; Visit Provider Nurse Practitioner
DX: M19.012 Primary osteoarthritis, left shoulder (principal); Z98.890 Other specified postprocedural states; M19.032 Primary osteoarthritis, left wrist; M24.122 Other articular cartilage disorders, left elbow; M75.32 Calcific tendinitis of left shoulder; M75.42 Impingement syndrome of left shoulder; M65.822 Other synovitis and tenosynovitis, left upper arm; M62.512 Muscle wasting and atrophy, not elsewhere classified, left shoulder
CPT/HCPCS: 23350; 73223; 77002; A9577; J9999; Q9966